=== PATIENT | male | born 1965 | race Caucasian/White ===

== ENCOUNTER → 2025-05-09 13:44 | Outpatient (REF) | payer OTHER, SELFPAY | LOC: RAD 13:44 | PROVIDERS: ATTENDING PHYSICIAN Internal Medicine | DX: M25.561 Pain in right knee (principal); M25.461 Effusion, right knee | CPT/HCPCS: 73560 ==

== ENCOUNTER → 2025-07-29 10:27 | Outpatient (REF) | payer OTHER, SELFPAY | LOC: RAD 10:27 | PROVIDERS: ATTENDING PHYSICIAN Internal Medicine | DX: S29.001A Unspecified injury of muscle and tendon of front wall of thorax, initial encounter (principal); S49.91XA Unspecified injury of right shoulder and upper arm, initial encounter | CPT/HCPCS: 71101; 73030 ==